=== PATIENT | female | born 1960 | race African-American/Black ===

== ENCOUNTER → 2019-12-09 | Outpatient (CLI) | payer OTHER ==
--- NOTE | 2019-12-16 11:18 | RAD ---
EXAM: Bilateral screening mammogram. HISTORY: 59-year-old female presents for screening mammography. TECHNIQUE: Full-field digital craniocaudal and mediolateral oblique views of both breasts are obtained for evaluation. Computer aided detection was applied. COMPARISON: There is no prior study for comparison. This exam serves as a new baseline mammogram. BREAST PARENCHYMAL DENSITY: Level B - Scattered fibroglandular densities. FINDINGS: There is asymmetry within the 2:00 subareolar aspect of the left breast which contains a few grouped microcatheter calcifications with indistinct morphology. There is no architectural distortion. IMPRESSION: BI-RADS Category 0: Incomplete. Additional imaging needed. RECOMMENDATION: Further evaluation with spot compression views of asymmetry within the subareolar 2:00 position of the left breast is recommended given the absence of a prior study to confirm stability. Sonographic imaging may also be performed if deemed indicated based on additional mammographic findings. If your mammogram demonstrates that you have dense breast tissue, which could hide abnormalities, and if you have other risk factors for breast cancer that have been identified, you might benefit from supplemental screening tests that may be suggested by your ordering physician. Dense breast tissue, in and of itself, is a relatively common condition. This information is not provided to cause undue concern, but rather to raise your awareness and to promote discussion with your physician regarding the presence of other risk factors, in addition to dense breast tissue. A report of your mammography results will be sent to you and your physician. You should contact your physician if you have any questions or concerns regarding this report. Mammography is a sensitive method for finding small breast cancers, but it does not detect them all and is not a substitute for careful clinical examination. A negative mammogram does not negate a clinically suspicious finding and should not result in delay in biopsying a clinically suspicious abnormality. PQRS compliance statement - Patient information was entered into a reminder system with a target due date for the next mammogram. "Our facility is accredited by the [employer] Mammography [employer]." Electronically signed by: Jade Nelson MD (12/16/2019 11:15 AM) [id number]
== END ==
LOC: MAMMO 15:04
PROVIDERS: ATTEND Nurse Practitioner Family
DX: Z12.31 Encounter for screening mammogram for malignant neoplasm of breast (principal)
CPT/HCPCS: 77067

== ENCOUNTER → 2020-04-06 | Outpatient (CLI) | payer OTHER ==
--- NOTE | 2020-04-07 16:29 | RAD ---
Examination: 1. Left digital diagnostic mammogram 2. Limited left breast ultrasound. INDICATION: 60-year-old woman recalled from screening for subareolar left breast calcifications and a symmetry. COMPARISON: Bilateral mammogram of 12/09/2019 TECHNIQUE: Full field left ML mammographic view in addition to magnification CC and ML views of the l eft breast were obtained. Thereafter, targeted ultrasound of the subareolar left breast was performed in the upper-outer quadrant. FINDINGS: Left mammogram: Almost entirely fatty replaced breast parenchyma. Magnification views of the left breast show punctate subareolar left breast calcifications in a scatt ered distribution, mammographically benign. Focal asymmetry in the anterior lateral, upper outer malcolm st was pursued with ultrasound. Limited left breast ultrasound: No sonographic abnormality identified in the periareolar left breast with a ridge of fibroglandular t issue identified at the 2:00 periareolar breast that likely correlates with the focal asymmetry recal led from screening. In addition, an echogenic parallel orientation 4 mm mass is identified at the 2:0 0 position 4 cm from the nipple, favored to represent a benign mass such as a lipoma or hemangioma. IMPRESSION: Probably benign findings in the left breast. BI-RADS Category 3 Probably benign Recommend 6 month follow-up left diagnostic mammogram and ultrasound Electronically signed by: Saadia Higgins MD (04/07/2020 4:27 PM) [id number]
== END ==
LOC: MAMMO 13:45
PROVIDERS: ATTEND Nurse Practitioner Family
DX: N63.21 Unspecified lump in the left breast, upper outer quadrant (principal); N64.89 Other specified disorders of breast
CPT/HCPCS: 76641; 77065

== ENCOUNTER → 2020-09-30 | Outpatient (CLI) | payer OTHER ==
--- NOTE | 2020-09-30 14:24 | RAD ---
Exam performed: Diagnostic left mammogram. HISTORY: Follow-up nodule in the left outer breast. DATE OF SERVICE: 09/30/2020. COMPARISON: Screening bilateral mammogram from 12/09/2019 with subsequent diagnostic left mammogram a nd ultrasound from 04/06/2020 Findings: 2-D and 3-D cc, MLO, 90 degree medial lateral as well as spot compression CC and mediolateral views o f the left breast are obtained. Occasional fibroglandular densities are seen. Nodularity seen previou sly in the left outer breast, 2:00 position, anterior depth is redemonstrated. Prior ultrasound demon strated this to be a lipoma. No associated architectural distortion or calcifications identified. IMPRESSION: Benign left mammogram. Note is made the patient is scheduled for bilateral screening in 2 months. Pat ient may return for annual screening mammography at her scheduled time. BI-RADS Category 2: Benign. Patient was entered into the reminder system using [employer] with a target due date for next screening mammogram "Our facility is accredited by the [employer] Mammography [employer]." Electronically signed by: Michell Dale MD (09/30/2020 2:22 PM) [id number]
== END ==
LOC: MAMMO 13:35
PROVIDERS: ATTEND Nurse Practitioner Family
DX: N63.21 Unspecified lump in the left breast, upper outer quadrant (principal)
CPT/HCPCS: 77065

== ENCOUNTER 2020-11-10 08:36 | Emergency (ER) | payer BC, OTHER ==
[~2020-11-10] VITALS: Ht 162.6 cm; Wt 104.8 kg
[2020-11-10 09:15] VITALS: BP 117/68
[2020-11-10] MEDS ORDERED: HYDROcodone/APAP 5/325MG 1 TAB TABLET PO ONE (09:15)
[2020-11-10] MEDS ORDERED: HYDR-2759 PO (09:18)
--- NOTE | 2020-11-10 09:19 | PHYS DOC ---
Past History Additional Past Medical Histor: uterine cancer, blood clot arm Past Surgical History: Hysterectomy, Tonsillectomy, Other Additional Past Surgical Histo: lap band Alcohol Use: None General Adult EDM: Chief Complaint: UPPER EXTREMITY INJURY HPI: HPI: 60-year-old female presents with left arm swelling. The patient has been diagnosed recently with a spontaneous DVT of the left arm. [facility] She started on rivaroxaban 2 days ago. She presents today because it really hurts. They did not give her any pain medication. Patient has no other complaints. Review of Systems: Review of Systems: Constitutional: Denies fever or chills Eyes: Denies change in visual acuity HENT: Denies nasal congestion or sore throat Respiratory: Denies cough or shortness of breath Cardiovascular: Denies chest pain or edema GI: Denies abdominal pain, nausea, vomiting, bloody stools or diarrhea : Denies dysuria Musculoskeletal: Left arm pain Integument: Denies rash Neurologic: Denies headache, focal weakness or sensory changes Endocrine: Denies polyuria or polydipsia Lymphatic: Denies swollen glands Psychiatric: Denies depression or anxiety Physical Exam: PE: Constitutional: Well developed, well nourished, morbidly obese, no acute distress, non-toxic appearance. [] HENT: Normocephalic, atraumatic, bilateral external ears normal, oropharynx moist, no oral exudates, nose normal. [] Eyes: PERRLA, EOMI, conjunctiva normal, no discharge. [] Neck: Normal range of motion, no tenderness, supple, no stridor. [] Cardiovascular: Heart rate regular rhythm, no murmur [] Lungs & Thorax: Bilateral breath sounds clear to auscultation [] Abdomen: Bowel sounds normal, soft, no tenderness, no masses, no pulsatile masses. [] Skin: Warm, dry, no erythema, no rash. [] Back: No tenderness, no CVA tenderness. [] Extremities: Swelling of the left forearm with no obvious cellulitis. [] Neurologic: Alert and oriented X 3, normal motor function, normal sensory function, no focal deficits noted. [] Psychologic: Affect normal, judgement normal, mood normal. [] Current Patient Data: Vital Signs: Vital Signs Date Time Temp Pulse Resp B/P (MAP) Pulse Ox O2 Delivery O2 Flow Rate FiO2 9/30/21 08:47 98.6 108 20 122/69 (86) 96 Room Air EKG: EKG: [] Radiology/Procedures: Radiology/Procedures: [] Heart Score: C/O Chest Pain: N/A Risk Factors: Risk Factors: DM, Current or recent (<one month) smoker, HTN, HLP, family history of CAD, obesity. Risk Scores: Score 0 - 3: 2.5% MACE over next 6 weeks - Discharge Home Score 4 - 6: 20.3% MACE over next 6 weeks - Admit for Clinical Observation Score 7 - 10: 72.7% MACE over next 6 weeks - Early Invasive Strategies Course & Med Decision Making: Course & Med Decision Making Pertinent Labs and Imaging studies reviewed. (See chart for details) The patient already has a diagnosis of DVT of the upper extremity. She is on the correct medication. I will give her [place] 5/325 in the emergency room as well as a short prescription for home. She is stable for discharge at this time. [] [place] Disclaimer: Carrillo Disclaimer: This electronic medical record was generated, in whole or in part, using a voice recognition dictation system. Departure Departure: Impression: Primary Impression: Deep vein thrombosis (DVT) of left upper extremity Qualified Codes: I82.622 - Acute embolism and thrombosis of deep veins of left upper extremity Disposition: 01 HOME / SELF CARE / HOMELESS Condition: STABLE Referrals: [facility] [facility] (PCP) Patient Instructions: Deep Vein Thrombosis Scripts Hydrocodone/Acetaminophen (Hydrocodone-Acetamin 5-325 mg) 1 Each Tablet 1 EACH PO Q4-6HRS PRN for PAIN, #10 TAB Prov: TANIA HARRIS DO 11/10/20 TANIA HARRIS DO Nov 10, 2020 09:19
== END 2020-11-10 09:35 | disposition home or self-care (01) ==
LOC: ER 08:36
DX: I82.622 Acute embolism and thrombosis of deep veins of left upper extremity (principal); Z90.710 Acquired absence of both cervix and uterus
CPT/HCPCS: 99283-25